=== PATIENT | female | born 1940 | race Caucasian/White ===

== ENCOUNTER → 2023-06-13 09:43 | Outpatient (REF) | payer OTHER, SELFPAY | LOC: HWRAD 09:43 | PROVIDERS: ATTENDING PHYSICIAN Internal Medicine | DX: E11.59 Type 2 diabetes mellitus with other circulatory complications (principal); I25.10 Atherosclerotic heart disease of native coronary artery without angina pectoris; E78.00 Pure hypercholesterolemia, unspecified; R14.0 Abdominal distension (gaseous); H93.A9 Pulsatile tinnitus, unspecified ear | CPT/HCPCS: 76700 ==

== ENCOUNTER → 2023-07-17 09:28 | Outpatient (REF) | payer OTHER, SELFPAY | LOC: MRI 3T 09:28 | PROVIDERS: ATTENDING PHYSICIAN Internal Medicine | DX: K86.2 Cyst of pancreas (principal) | CPT/HCPCS: 74183; A9575 ==

== ENCOUNTER → 2024-12-19 12:52 | Outpatient (REF) | payer OTHER, SELFPAY | LOC: HWRCS 12:52 | PROVIDERS: ATTENDING PHYSICIAN Internal Medicine Interventional Cardiology; FAMILY PHYSICIAN Internal Medicine | DX: I25.10 Atherosclerotic heart disease of native coronary artery without angina pectoris (principal); I10 Essential (primary) hypertension | CPT/HCPCS: 93306 ==